=== PATIENT | female | born 1955 | race Caucasian/White ===

== ENCOUNTER 2017-01-13 14:36 | Outpatient (CLI) | payer OTHER ==
--- NOTE | 2017-01-14 10:29 | Ultrasound Report ---
PELVIC ULTRASOUND: 01/13/2017 CLINICAL INDICATION: Postmenopausal bleeding. TECHNIQUE: Transabdominal pelvic ultrasound performed for global evaluation. Transvaginal pelvic ult rasound performed for detailed evaluation. Real-time scanning performed and static images obtained. FINDINGS: The uterus is anteverted, measuring 9.9 x 5.8 x 4.4 cm. The endometrium is thickened, marcus suring 8 mm. Leiomyomas are present, with one in the right intramural myometrium measuring 2.7 x 2.2 x 2.2 cm, and one in the anterior intramural myometrium measuring 3.5 x 2.4 x 3.0 cm. The ovaries a re unremarkable, with the right measuring 2.2 x 2.1 x 1.8 cm, and the left measuring 1.8 x 1.8 x 1.1 cm. No free fluid is present. IMPRESSION: THICKENED ENDOMETRIUM FOR A POSTMENOPAUSAL PATIENT. CORRELATION WITH ENDOMETRIAL BIOPSY IS RECOMMENDED. INTRAMURAL LEIOMYOMAS. NORMAL OVARIES. JOB #: [id number] EXT JOB #:[id number]
== END 2017-01-13 14:37 | disposition home or self-care (01) ==
LOC: DI 14:36
PROVIDERS: ATTEND Family Medicine
DX: R93.8 Abnormal findings on diagnostic imaging of other specified body structures (principal); D25.1 Intramural leiomyoma of uterus
CPT/HCPCS: 76830; 76856

== ENCOUNTER 2017-03-02 09:04 | Outpatient (CLI) | payer OTHER ==
[2017-03-02 13:15] LABS: BASOPHILS % (AUTO) 0.4 %; EOSINOPHILS # (AUTO) 0.2 10^3/uL (0.0-0.7); EOSINOPHILS % (AUTO) 2.5 %; HCT - HEMATOCRIT 39.9 % (37.0-47.0); HGB - HEMOGLOBIN 13.4 g/dL (12.0-16.0); LYMPHOCYTES # (AUTO) 1.6 10^3/uL (1.5-3.5); LYMPHOCYTES % (AUTO) 25.8 %; MEAN CORPUSCULAR HEMOGLOBIN 27.9 pg (27.0-31.0); MEAN CORPUSCULAR HGB CONC 33.6 g/dL (32.0-36.0); MEAN CORPUSCULAR VOLUME 83.2 fL (81.0-99.0); MEAN PLATELET VOLUME 9.3 fL (7.9-10.8); MONOCYTES # (AUTO) 0.4 10^3/uL (0.0-1.0); MONOCYTES % (AUTO) 6.8 %; NEUTROPHILS # (AUTO) 3.9 10^3/uL (1.5-6.6); NEUTROPHILS % (AUTO) 64.5 %; NUCLEATED RED BLOOD CELLS AUTO 0.1 /100WBC; RED CELL DISTRIBUTION WIDTH 13.6 % (12.0-15.0)
[2017-03-02 13:54] LABS: ALBUMIN/GLOBULIN RATIO 1.3 (1.0-2.2); BILIRUBIN,TOTAL 0.7 mg/dL (0.2-1.0); BUN - BLOOD UREA NITROGEN 18 mg/dL (6-20); CARBON DIOXIDE - CO2 26 mmol/L (21-32); CHLORIDE 104 mmol/L (101-111); CHOL/HDL RATIO 4.8 (<4.4); CHOLESTEROL 191 mg/dL; GFR - MDRD 56 (>89); GLUCOSE 107 mg/dL (70-100); HDL CHOLESTEROL 40 mg/dL; LDL/HDL RATIO 2.9 (<4.4); POTASSIUM 4.4 mmol/L (3.5-5.0); SODIUM 137 mmol/L (135-145); TOTAL PROTEIN 7.1 g/dL (6.7-8.2); TRIGLYCERIDES 171 mg/dL; VLDL CHOLESTEROL 34 mg/dL
[2017-03-02 14:10] LABS: HEMOGLOBIN A1C 0.53 g/dL
== END 2017-03-02 09:05 | disposition home or self-care (01) ==
LOC: LAB.WCP 09:04
PROVIDERS: ATTEND Family Medicine
DX: Z00.00 Encounter for general adult medical examination without abnormal findings (principal); E03.9 Hypothyroidism, unspecified; I10 Essential (primary) hypertension
CPT/HCPCS: 36415; 80053; 80061; 83036; 84443; 85025

== ENCOUNTER 2017-03-28 12:37 | Outpatient (CLI) | payer OTHER ==
[2017-03-28 13:04] LABS: BILIRUBIN,URINE NEGATIVE (NEGATIVE); PH,URINE 5.5 PH (5.0-7.5)
[2017-03-28 13:05] LABS: BASOPHILS # (AUTO) 0.1 10^3/uL (0.0-0.1); BASOPHILS % (AUTO) 0.7 %; EOSINOPHILS # (AUTO) 0.2 10^3/uL (0.0-0.7); EOSINOPHILS % (AUTO) 2.5 %; HCT - HEMATOCRIT 39.9 % (37.0-47.0); HGB - HEMOGLOBIN 13.5 g/dL (12.0-16.0); LYMPHOCYTES # (AUTO) 2.3 10^3/uL (1.5-3.5); LYMPHOCYTES % (AUTO) 28.6 %; MEAN CORPUSCULAR HEMOGLOBIN 28.2 pg (27.0-31.0); MEAN CORPUSCULAR HGB CONC 33.9 g/dL (32.0-36.0); MEAN PLATELET VOLUME 8.4 fL (7.9-10.8); MONOCYTES # (AUTO) 0.5 10^3/uL (0.0-1.0); MONOCYTES % (AUTO) 6.7 %; NEUTROPHILS % (AUTO) 61.5 %; RED CELL DISTRIBUTION WIDTH 13.4 % (12.0-15.0); UNCORRECTED WHITE BLOOD COUNT 8.1 x10^3/uL; WHITE BLOOD COUNT 8.1 x10^3/uL (4.8-10.8)
[2017-03-28 13:19] LABS: ALBUMIN/GLOBULIN RATIO 1.4 (1.0-2.2); BILIRUBIN,TOTAL 0.7 mg/dL (0.2-1.0); CALCIUM 9.1 mg/dL (8.5-10.3); CREATININE 0.8 mg/dL (0.4-1.0); POTASSIUM 4.4 mmol/L (3.5-5.0); TOTAL PROTEIN 7.2 g/dL (6.7-8.2)
== END 2017-03-28 12:38 | disposition home or self-care (01) ==
LOC: LAB 12:37
PROVIDERS: ATTEND Obstetrics & Gynecology
DX: N95.0 Postmenopausal bleeding (principal)
CPT/HCPCS: 36415; 80053; 81003; 85025; 93005

== ENCOUNTER 2017-03-30 09:20 | Day surgery (SDC) | payer OTHER ==
--- NOTE | 2017-03-14 15:13 | PREOP HISTORY & PHYSICAL ---
DATE OF ADMISSION/SURGERY: 03/30/2017. DIAGNOSES 1. Postmenopausal bleeding. 2. Abnormal Pap smear. INTENDED PROCEDURE: Diagnostic hysteroscopy with biopsy; dilatation and curettage. HISTORY OF PRESENT ILLNESS: The patient is a 61-year-old . Her most recent vaginal bleeding episode was last Tuesday and described as similar to a period. She has had a prior endometrial biopsy, which was negative for malignancy or hyperplasia. Her Pap smear was ASCUS, and she underwent colposcopy which did not reveal dysplastic change. Due to continued bleeding, definitive diagnosis is required with hysteroscopy. Described the mechanics, risks, benefits, and alternatives to hysteroscopy. Patient had all of her questions answered. ACOG handouts on postmenopausal bleeding and hysteroscopy were reviewed. Overall, the patient has had uterine bleeding off and on for 2 years. Patient has never used contraception. She had prior abnormal Pap smears before the ASCUS. The patient reports menopausal symptoms that include loss of sex drive, memory loss, vaginal dryness, and insomnia. PAST MEDICAL HISTORY 1. She has a history of anxiety and depression with anxiety bouts and panic attacks. This interferes with her relationship with her . 2. In addition, she carries a history of fibromyalgia. 3. There is a history of hypertension, which is asymptomatic. FAMILY HISTORY: Asthma in mother; diabetes mother, father, brother; CAD mother; hypertension in mother and father. SOCIAL HISTORY: Currently in a relationship with domestic partner, previous marriage . Financial situation not worrisome. No drug, tobacco, or alcohol use reported. ALLERGIES: PATIENT IS SENSITIVE TO DEMEROL. MEDICATIONS 1. Omeprazole. 2. Synthroid. 3. Lisinopril. 4. Mobic. 5. Trazodone. 6. Fexofenadine. PHYSICAL EXAMINATION GENERAL: Well groomed, alert, cooperative, obese, suspect morbidly obese, BMI 41.6. HEENT: Supple neck. No thyromegaly or thyroid tenderness. Dentition in repair. EOMI. Non-icteric sclerae. LUNGS: Distant but clear. CARDIAC: Regular. No significant murmur or gallop. BREASTS: Pendulous. No masses detected or nipple discharge. No axillary lymphadenopathy. PELVIC EXAM: GENERAL: Mild erythematous change with atrophy. VAGINA: Mucosa is moist. Mild prolapse grade 1, rugae present. CERVIX: Parous, no lesions noted. UTERUS: Difficult to evaluate due to obesity, possibly enlarged, minimally tender. ADNEXA: Cannot determine. EXTREMITIES: Arthritis present. SKIN: No lesions. NEUROLOGIC: Grossly intact. Detailed exam and cognitive exam not done. ASSESSMENT: Patient continues to have postmenopausal bleeding despite nonpathological endometrial biopsy. Her endometrial biopsy shows a breakdown consistent with shedding; no endometritis, hyperplasia, or malignancy. Requires tissue diagnosis since the bleeding has continued. PLAN: Consented patient for hysteroscopy with D and C. Mechanics, risks, benefits, and alternatives were reviewed. Patient to have a 7 day Mobic holiday to minimize bleeding risk. OG brochure on PMB and Hysteroscopy reviewed. JOB #: [id number] EXT JOB #:[id number] ADRYAN
[2017-03-30] MEDS ORDERED: LACTATED RINGERS 1,000 ML IV ONE (09:55)
[2017-03-30] MEDS ORDERED: MIDAZOLAM 2 MG/2 ML VIAL IVP ONE (11:00)
[2017-03-30] MEDS ORDERED: LIDOCAINE-MPF 2% 5 ML VIAL IM ONE (11:00)
[2017-03-30] MEDS ORDERED: DEXAMETHASONE 4 MG/ML VIAL IVP ONE (11:00)
[2017-03-30] MEDS ORDERED: ONDANSETRON 4 MG/2 ML VIAL IVP ONE (11:00)
[2017-03-30] MEDS ORDERED: PROPOFOL 200 MG/20 ML VIAL IVP ONE (11:00)
[2017-03-30] MEDS ORDERED: fentaNYL 100 MCG/2 ML VIAL IVP ONE (11:00)
[2017-03-30] MEDS ORDERED: KETOROLAC 30 MG/ML VIAL ONE (12:27)
[2017-03-30 13:25] VITALS: BP 108/57
--- NOTE | 2017-03-31 13:02 | OPERATIVE REPORT ---
DATE OF SURGERY: 03/30/2017 PREOPERATIVE DIAGNOSES 1. Menorrhagia. 2. Normal endometrial biopsy. 3. Postmenopausal bleeding. POSTOPERATIVE DIAGNOSIS: Uterine polyps with benign appearance, await pathology. PROCEDURE: Hysteroscopy, dilatation and curettage, polypectomy. SURGEON: Phu Greer MD, FACOG, FICS. ANESTHESIOLOGIST: Olivia Dean, certified nurse inner layer scrubber tender. ANESTHESIA: General, ET tube placed. COMPLICATIONS: None. BLOOD LOSS: Minimal. FINDINGS: Uterus is prominent, probably 6 weeks size, with no adnexal masses. The uterine cavity is studded with several benign-appearing polyps. There were no areas of dysplastic vascular change. TECHNIQUE: The patient was brought to the operating room, placed in supine position for administration of general anesthesia. She was uneventfully induced and intubated. She was moved to the low dorsal lithotomy position on [facility] stirrups. She was prepped and draped in the customary sterile fashion. Timeout procedure was done per protocol. Clamshell speculum was used to visualize the cervix. Anterior cervix was grasped with a single-tooth tenaculum. Serial application of Hegar probes was used to dilate the cervix. Endocervical curetting was taken. Next, video hysteroscope was introduced into the uterine cavity and it was flushed several times for clear visualization. The polyps were clearly seen and photographed. The hysteroscope was then withdrawn. A medium sized curet was brought to the field and the cavity systematically scraped. Again, hysteroscope was inserted, and the cavity flushed. There was some residual polyp material. A medium curet was then reintroduced and the remaining material harvested. At the end of the case, the uterine cavity was packed with some iodoform gauze. All instruments were withdrawn. Patient was uneventfully awoken from general anesthesia and sent to the recovery room in stable condition. All sponge, needle and instrument counts were confirmed as correct. DISPOSITION: Vaginal packing was withdrawn prior to discharge home. Toradol was used for pain control. The patient will restart her Mobic once she is discharged to help contain uterine pain. Warning sign and callback instructions were reviewed. Patient will see us in 2 weeks to review pathology. TD: 03/30/2017 21:36 [facility]
== END 2017-03-30 09:21 | disposition home or self-care (01) ==
LOC: SDS 09:20
PROVIDERS: ATTEND Obstetrics & Gynecology
PROC: 0UDB8ZX Extraction of Endometrium, Via Natural or Artificial Opening Endoscopic, Diagnostic (ICD-10-PCS; 2017-03-30)
PROC: 0UB97ZX Excision of Uterus, Via Natural or Artificial Opening, Diagnostic (ICD-10-PCS; principal; 2017-03-30 10:30)
DX: N84.0 Polyp of corpus uteri (principal); I10 Essential (primary) hypertension; M79.7 Fibromyalgia
CPT/HCPCS: 58558; J7120

== ENCOUNTER 2017-05-04 09:30 | Outpatient (CLI) | payer OTHER ==
--- NOTE | 2017-05-10 19:48 | Mammography Report ---
DATE OF SERVICE: 05/04/2017 DIGITAL SCREENING MAMMOGRAM: 05/04/2017 CLINICAL INDICATION: A 61-year-old for screening. COMPARISON: Films from [facility], [place] dated 09/18/2015, 07/19/2013, 04/05/2011. TECHNIQUE: Routine CC and MLO projections were obtained of the breasts. The breasts demonstrate fatty replacement bilaterally. Coarse and punctate, typically benign calcifications are present. No suspicious masses, clustered microcalcifications, or regions of architectural distortion are identified. IMPRESSION: Benign findings. RECOMMENDATIONS: Routine annual screening unless otherwise clinically indicated. BIRADS category 2 benign findings. STANDARD QUALIFYING STATEMENTS 1. This examination was reviewed with the aid of Computed-Aided Detection (CAD). 2. A negative or benign imaging report should not delay biopsy if clinically suspicious findings are present. Consider surgical consultation if warranted. More than 5% of cancers are not identified by imaging. 3. Dense breasts may obscure an underlying neoplasm. TD: 05/10/2017 20:46
== END 2017-05-04 09:31 | disposition home or self-care (01) ==
LOC: DI 09:30
PROVIDERS: ATTEND Family Medicine
DX: Z12.31 Encounter for screening mammogram for malignant neoplasm of breast (principal)
CPT/HCPCS: 77067

== ENCOUNTER 2018-04-06 08:31 | Outpatient (CLI) | payer OTHER ==
[2018-04-06 13:30] LABS: BASOPHILS % (AUTO) 0.3 %; EOSINOPHILS # (AUTO) 0.2 10^3/uL (0.0-0.7); EOSINOPHILS % (AUTO) 2.8 %; HGB - HEMOGLOBIN 12.8 g/dL (12.0-16.0); LYMPHOCYTES # (AUTO) 1.4 10^3/uL (1.5-3.5); LYMPHOCYTES % (AUTO) 24.8 %; MEAN CORPUSCULAR HEMOGLOBIN 28.1 pg (27.0-31.0); MEAN CORPUSCULAR HGB CONC 33.8 g/dL (32.0-36.0); MEAN CORPUSCULAR VOLUME 83.3 fL (81.0-99.0); MEAN PLATELET VOLUME 8.7 fL (7.9-10.8); MONOCYTES # (AUTO) 0.4 10^3/uL (0.0-1.0); MONOCYTES % (AUTO) 6.3 %; NEUTROPHILS # (AUTO) 3.8 10^3/uL (1.5-6.6); NEUTROPHILS % (AUTO) 65.8 %; PLT - PLATELET COUNT 249 10^3/uL (130-450); RED BLOOD COUNT 4.55 10^6/uL (4.20-5.40); RED CELL DISTRIBUTION WIDTH 13.3 % (12.0-15.0); WHITE BLOOD COUNT 5.8 x10^3/uL (4.8-10.8)
[2018-04-06 13:59] LABS: ALBUMIN 3.8 g/dL (3.2-5.5); ALBUMIN/GLOBULIN RATIO 1.5 (1.0-2.2); ALKALINE PHOSPHATASE 68 IU/L (42-121); ALT ALANINE AMINOTRANSFERASE 31 IU/L (10-60); AST ASPARTATE AMINOTRANSFERASE 27 IU/L (10-42); BILIRUBIN,TOTAL 0.4 mg/dL (0.2-1.0); BUN - BLOOD UREA NITROGEN 16 mg/dL (6-20); CALCIUM 8.6 mg/dL (8.5-10.3); CARBON DIOXIDE - CO2 26 mmol/L (21-32); CHLORIDE 104 mmol/L (101-111); CHOL/HDL RATIO 4.6 (<4.4); CHOLESTEROL 171 mg/dL; CREATININE 0.8 mg/dL (0.4-1.0); GFR - MDRD 73 (>89); GLUCOSE 107 mg/dL (70-100); HDL CHOLESTEROL 37 mg/dL; LDL CHOLESTEROL,CALCULATED 99 mg/dL; LDL/HDL RATIO 2.7 (<4.4); SODIUM 138 mmol/L (135-145); TOTAL PROTEIN 6.4 g/dL (6.7-8.2); VLDL CHOLESTEROL 35 mg/dL
== END 2018-04-06 23:59 | disposition home or self-care (01) ==
LOC: LAB.WCP 08:31
PROVIDERS: ATTEND Family Medicine
DX: I10 Essential (primary) hypertension (principal); Z13.220 Encounter for screening for lipoid disorders; E03.9 Hypothyroidism, unspecified
CPT/HCPCS: 36415; 80053; 80061; 83721; 84443; 85025

== ENCOUNTER 2019-03-22 09:41 | Outpatient (CLI) | payer OTHER ==
--- NOTE | 2019-03-26 11:26 | Mammography Report ---
Reason: ROUTINE MAMMO Procedure Date: 03/22/2019 Accession Number: [id number] / [id number] Procedure: MARY - Screening Mammo w/Jerel CPT Code: Final Report FULL RESULT: EXAM: Screening Mammo w/Jerel DATE: 03/22/2019 10:28 AM CLINICAL HISTORY: Screening encounter. TECHNIQUE: (B) - Bilateral CC and MLO views were obtained. COMPARISON: 05/04/2017 through 04/05/2011. PARENCHYMAL PATTERN: (F) - The breast(s) demonstrate(s) diffuse fatty replacement. FINDINGS: There are no suspicious masses, calcifications, or areas of distortion. IMPRESSION: Negative examination. BI-RADS category 1. RECOMMENDATION: (ANNUAL) - Recommend routine annual screening mammography. BI-RADS CATEGORY: (1) - Negative. STANDARD QUALIFYING STATEMENTS: 1. This examination was not reviewed with the aid of Computer-Aided Detection (CAD). 2. A negative or benign imaging report should not preclude biopsy if clinically suspicious findings are present. 3. Dense breasts may obscure an underlying neoplasm. 4. This examination was reviewed without the aid of 3D breast imaging (tomosynthesis).
== END 2019-03-22 09:42 | disposition home or self-care (01) ==
LOC: DI 09:41
DX: Z12.31 Encounter for screening mammogram for malignant neoplasm of breast (principal)
CPT/HCPCS: 77063; 77067

== ENCOUNTER 2019-04-17 07:00 | Outpatient (CLI) | payer OTHER ==
[2019-04-17 11:45] LABS: BASOPHILS % (AUTO) 0.6 %; EOSINOPHILS # (AUTO) 0.2 10^3/uL (0.0-0.7); HGB - HEMOGLOBIN 13.2 g/dL (12.0-16.0); LYMPHOCYTES # (AUTO) 1.6 10^3/uL (1.5-3.5); LYMPHOCYTES % (AUTO) 29.7 %; MEAN CORPUSCULAR HEMOGLOBIN 27.4 pg (27.0-31.0); MEAN CORPUSCULAR HGB CONC 31.9 g/dL (32.0-36.0); MEAN CORPUSCULAR VOLUME 86.1 fL (81.0-99.0); MEAN PLATELET VOLUME 11.1 fL (7.9-10.8); MONOCYTES # (AUTO) 0.4 10^3/uL (0.0-1.0); MONOCYTES % (AUTO) 7.6 %; NEUTROPHILS # (AUTO) 3.1 10^3/uL (1.5-6.6); NEUTROPHILS % (AUTO) 58.7 %; PLT - PLATELET COUNT 239 10^3/uL (130-450); RED BLOOD COUNT 4.81 10^6/uL (4.20-5.40); RED CELL DISTRIBUTION WIDTH 12.7 % (12.0-15.0); WHITE BLOOD COUNT 5.3 x10^3/uL (4.8-10.8)
[2019-04-17 12:05] LABS: ALBUMIN 4.1 g/dL (3.2-5.5); ALBUMIN/GLOBULIN RATIO 1.8 (1.0-2.2); ALKALINE PHOSPHATASE 55 IU/L (42-121); ALT ALANINE AMINOTRANSFERASE 31 IU/L (10-60); AST ASPARTATE AMINOTRANSFERASE 28 IU/L (10-42); BUN - BLOOD UREA NITROGEN 15 mg/dL (6-20); CALCIUM 8.8 mg/dL (8.5-10.3); CARBON DIOXIDE - CO2 25 mmol/L (21-32); CHLORIDE 106 mmol/L (101-111); CHOL/HDL RATIO 4.5 (<4.4); CHOLESTEROL 193 mg/dL; CREATININE 0.9 mg/dL (0.4-1.0); GFR - MDRD 63 (>89); GLUCOSE 113 mg/dL (70-100); HDL CHOLESTEROL 43 mg/dL; LDL CHOLESTEROL,CALCULATED 101 mg/dL; LDL/HDL RATIO 2.3 (<4.4); SODIUM 138 mmol/L (135-145); TOTAL PROTEIN 6.4 g/dL (6.7-8.2); VLDL CHOLESTEROL 49 mg/dL
== END 2019-04-17 23:59 | disposition home or self-care (01) ==
LOC: LAB.WCP 07:00
PROVIDERS: ATTEND Family Medicine
DX: I10 Essential (primary) hypertension (principal); E03.9 Hypothyroidism, unspecified
CPT/HCPCS: 36415; 80053; 80061; 83721; 84443; 85025

== ENCOUNTER 2020-04-04 08:00 | Outpatient (CLI) | payer OTHER ==
[2020-04-04 12:17] LABS: BASOPHILS % (AUTO) 0.6 %; EOSINOPHILS # (AUTO) 0.2 10^3/uL (0.0-0.7); EOSINOPHILS % (AUTO) 3.2 %; HGB - HEMOGLOBIN 13.7 g/dL (12.0-16.0); LYMPHOCYTES # (AUTO) 1.5 10^3/uL (1.5-3.5); LYMPHOCYTES % (AUTO) 28.3 %; MEAN CORPUSCULAR HEMOGLOBIN 27.6 pg (27.0-31.0); MEAN CORPUSCULAR HGB CONC 31.7 g/dL (32.0-36.0); MEAN CORPUSCULAR VOLUME 86.9 fL (81.0-99.0); MEAN PLATELET VOLUME 11.3 fL (7.9-10.8); MONOCYTES # (AUTO) 0.4 10^3/uL (0.0-1.0); MONOCYTES % (AUTO) 7.3 %; NEUTROPHILS # (AUTO) 3.2 10^3/uL (1.5-6.6); NEUTROPHILS % (AUTO) 60.4 %; PLT - PLATELET COUNT 241 10^3/uL (130-450); RED BLOOD COUNT 4.97 10^6/uL (4.20-5.40); RED CELL DISTRIBUTION WIDTH 12.3 % (12.0-15.0); WHITE BLOOD COUNT 5.3 x10^3/uL (4.8-10.8)
[2020-04-04 13:07] LABS: ALBUMIN 4.1 g/dL (3.2-5.5); ALBUMIN/GLOBULIN RATIO 1.4 (1.0-2.2); ALKALINE PHOSPHATASE 62 IU/L (42-121); ALT ALANINE AMINOTRANSFERASE 19 IU/L (10-60); AST ASPARTATE AMINOTRANSFERASE 20 IU/L (10-42); BILIRUBIN,TOTAL 1.1 mg/dL (0.2-1.0); BUN - BLOOD UREA NITROGEN 18 mg/dL (6-20); CALCIUM 9.4 mg/dL (8.5-10.3); CARBON DIOXIDE - CO2 27 mmol/L (21-32); CHLORIDE 104 mmol/L (101-111); CHOL/HDL RATIO 4.4 (<4.4); CHOLESTEROL 199 mg/dL; CREATININE 0.8 mg/dL (0.4-1.0); GLUCOSE 106 mg/dL (70-100); HDL CHOLESTEROL 45 mg/dL; LDL CHOLESTEROL,CALCULATED 131 mg/dL; LDL/HDL RATIO 2.9 (<4.4); SODIUM 139 mmol/L (135-145); TOTAL PROTEIN 7.1 g/dL (6.7-8.2); VLDL CHOLESTEROL 23 mg/dL
[2020-04-04 13:28] LABS: HEMOGLOBIN A1c% 5.3 % (4.27-6.07)
== END 2020-04-04 23:59 | disposition home or self-care (01) ==
LOC: LAB.WCP 08:00
PROVIDERS: ATTEND Family Medicine
DX: E88.81 Metabolic syndrome and other insulin resistance (principal)
CPT/HCPCS: 36415; 80053; 80061; 83036; 83721; 84443; 85025

== ENCOUNTER 2020-05-09 12:51 | Outpatient (CLI) | payer OTHER ==
--- NOTE | 2020-05-09 15:45 | DEXA Report ---
PROCEDURE: Dexa Spine and/or Hip INDICATIONS: POSTMENOPAUSAL TECHNIQUE: Dual energy x-ray absorptiometry (DXA) was performed on a Subblime System. Regions measur ed are the AP Spine, femoral neck, and if needed forearm. COMPARISON: None. FINDINGS: Lumbar Spine: Bone Mineral Density 1.2 g/cm/cm,T score 0.2, normal Left Hip: Bone Mineral Density 0.955 g/cm/cm,T score -0.4, normal Left Femoral Neck: Bone Mineral Density 0.981 g/cm/cm, T score -0.4, normal (T score greater or equal to -1.0: NORMAL) (T score from -1.1 to -2.4: OSTEOPENIA) (T score less than or equal to -2.5 to: OSTEOPOROSIS) Impression: Normal bone mineral density. Patients with diagnosis of osteoporosis or osteopenia should have regular bone mineral density assess ment. For those eligible for Medicare, routine testing is allowed once every 2 years. Testing frequ ency can be increased for patients who have rapidly progressing disease or for those who are receivin g medical therapy to restore bone mass. Reviewed by: Kristen Fam MD on 05/09/2020 3:44 PM PST Approved by: Kristen Fam MD on 05/09/2020 3:44 PM PST Station ID: [id number]
== END 2020-05-09 12:52 | disposition home or self-care (01) ==
LOC: DI 12:51
PROVIDERS: ATTEND Family Medicine
DX: Z78.0 Asymptomatic menopausal state (principal)

== ENCOUNTER 2020-05-13 12:59 | Outpatient (CLI) | payer OTHER ==
--- NOTE | 2020-05-14 10:28 | Mammography Report ---
BILATERAL DIGITAL SCREENING MAMMOGRAM 3D/2D: 05/13/2020 CLINICAL: Routine screening. Comparison is made to exams dated: 03/22/2019 mammogram, 05/04/2017 mammogram, and 09/18/2015 mammogram - [facility]. The tissue of both breasts is predominantly fatty. No significant masses, calcifications, or other findings are seen in either breast. There has been no significant interval change. IMPRESSION: NEGATIVE There is no mammographic evidence of malignancy. A 1 year screening mammogram is recommended. This exam was interpreted at Station ID: [id number]. NOTE: For mammograms, a report in lay terms will be sent to the patient. Approximately 15% of breast malignancies will not be visualized mammographically. In the management of a palpable breast mass, a negative mammogram must not discourage biopsy of a clinically suspicious lesion. Electronically Signed By: Bijan Harp M.D. aty/penrad:05/13/2020 18:30:44 ACR BI-RADS Category 1: Negative 3341F PARENCHYMAL PATTERN: (F) - The breast(s) demonstrate(s) diffuse fatty replacement. BI-RADS CATEGORY: (1) - 1 RECOMMENDATION: (ANNUAL) - Recommend routine annual screening mammography. [id number] 1 year screening LATERALITY: (B)
== END 2020-05-13 13:00 | disposition home or self-care (01) ==
LOC: DI.N 12:59
DX: Z12.31 Encounter for screening mammogram for malignant neoplasm of breast (principal)

== ENCOUNTER 2020-08-27 08:18 | Outpatient (CLI) | payer OTHER ==
--- NOTE | 2020-08-27 12:57 | XRAY Report ---
PROCEDURE: Knee 3 View RT INDICATIONS: SUPERFICIAL INJURY OF R KNEE TECHNIQUE: 3 views of the right knee(s) were acquired. COMPARISON: None. FINDINGS: Bones: No fractures or dislocations. No suspicious bony lesions. Moderate medial and patellofemora l compartment narrowing is present with particular osteophytes. No gross erosions. There is an ossifi cation noted projecting over the tibial spine. Soft tissues: No joint effusion. No suspicious soft tissue calcifications. IMPRESSION: 1. Medial and patellofemoral arthritic change. 2. Ossification overlying the tibial spine. This could represent a loose body. As clinically indicate d, further evaluation with CT or MRI is recommended. Reviewed by: Kristen Fam MD on 08/27/2020 12:55 PM PDT Approved by: Kristen Fam MD on 08/27/2020 12:55 PM PDT Station ID: [id number]
== END 2020-08-27 23:59 | disposition home or self-care (01) ==
LOC: DI.N 08:18
PROVIDERS: ATTEND Nurse Practitioner
DX: M17.11 Unilateral primary osteoarthritis, right knee (principal); R93.6 Abnormal findings on diagnostic imaging of limbs

== ENCOUNTER 2020-09-23 08:00 | Outpatient (CLI) | payer BC, MEDICARE, OTHER ==
[2020-09-23 18:11] LABS: BASOPHILS % (AUTO) 0.5 %; EOSINOPHILS # (AUTO) 0.2 10^3/uL (0.0-0.7); EOSINOPHILS % (AUTO) 3.5 %; HCT - HEMATOCRIT 42.3 % (37.0-47.0); HGB - HEMOGLOBIN 13.4 g/dL (12.0-16.0); LYMPHOCYTES # (AUTO) 1.7 10^3/uL (1.5-3.5); LYMPHOCYTES % (AUTO) 29.4 %; MEAN CORPUSCULAR HEMOGLOBIN 27.5 pg (27.0-31.0); MEAN CORPUSCULAR HGB CONC 31.7 g/dL (32.0-36.0); MEAN CORPUSCULAR VOLUME 86.7 fL (81.0-99.0); MEAN PLATELET VOLUME 11.5 fL (7.9-10.8); MONOCYTES # (AUTO) 0.4 10^3/uL (0.0-1.0); MONOCYTES % (AUTO) 7.3 %; NEUTROPHILS # (AUTO) 3.4 10^3/uL (1.5-6.6); NEUTROPHILS % (AUTO) 59.1 %; PLT - PLATELET COUNT 230 10^3/uL (130-450); RED BLOOD COUNT 4.88 10^6/uL (4.20-5.40); RED CELL DISTRIBUTION WIDTH 12.7 % (12.0-15.0); WHITE BLOOD COUNT 5.8 x10^3/uL (4.8-10.8)
[2020-09-23 18:26] LABS: ALBUMIN 4.1 g/dL (3.2-5.5); ALBUMIN/GLOBULIN RATIO 1.5 (1.0-2.2); ALKALINE PHOSPHATASE 56 IU/L (42-121); ALT ALANINE AMINOTRANSFERASE 17 IU/L (10-60); AST ASPARTATE AMINOTRANSFERASE 14 IU/L (10-42); BUN - BLOOD UREA NITROGEN 16 mg/dL (6-20); CALCIUM 9.2 mg/dL (8.5-10.3); CARBON DIOXIDE - CO2 26 mmol/L (21-32); CHLORIDE 105 mmol/L (101-111); CHOL/HDL RATIO 3.7 (<4.4); CHOLESTEROL 177 mg/dL; CREATININE 0.7 mg/dL (0.4-1.0); GFR - MDRD 84 (>89); GLUCOSE 101 mg/dL (70-100); HDL CHOLESTEROL 48 mg/dL; LDL CHOLESTEROL,CALCULATED 105 mg/dL; LDL/HDL RATIO 2.2 (<4.4); POTASSIUM 4.3 mmol/L (3.5-5.0); SODIUM 140 mmol/L (135-145); TOTAL PROTEIN 6.9 g/dL (6.7-8.2); TRIGLYCERIDES 118 mg/dL; VLDL CHOLESTEROL 24 mg/dL
[2020-09-23 20:37] LABS: ESTIMATED AVERAGE GLUCOSE 108 mg/dL (70-100); HEMOGLOBIN A1c% 5.4 % (4.27-6.07)
== END 2020-09-23 23:59 | disposition home or self-care (01) ==
LOC: LAB.WCP 08:00
PROVIDERS: ATTEND Family Medicine
DX: I10 Essential (primary) hypertension (principal); E88.81 Metabolic syndrome and other insulin resistance
CPT/HCPCS: 36415; 80053; 80061; 83036; 83721; 85025

== ENCOUNTER 2020-10-31 06:14 | Day surgery (SDC) | payer MEDICARE, OTHER ==
[2020-10-31] MEDS ORDERED: ceFAZolin 2 GM/50 ML 2 GM/50 ML BAG IV ONE (06:21)
[2020-10-31] MEDS ORDERED: ACETAMINOPHEN 1,000 MG/100 ML 100 ML IV ONE (06:21)
[2020-10-31] MEDS ORDERED: GABAPENTIN 400 MG CAPSULE ONE (06:23)
[2020-10-31] MEDS ORDERED: DEXAMETHASONE 10 MG/ML VIAL ONE ×2 (06:24→06:51)
[2020-10-31] MEDS ORDERED: CELECOXIB 100 MG CAPSULE PO ONE (06:24)
[2020-10-31] MEDS ORDERED: LACTATED RINGERS 1,000 ML IV ONE ×2 (06:25→10:54)
[2020-10-31] MEDS ORDERED: PROPOFOL 1000 MG/100 ML 1,000 MG/100 ML BOTTLE IV ONE (06:50)
[2020-10-31] MEDS ORDERED: MIDAZOLAM 2 MG/2 ML VIAL ONE (06:50)
[2020-10-31] MEDS ORDERED: ROPIVACAINE 0.5% PF 20 ML AMPULE ONE (06:51)
[2020-10-31] MEDS ORDERED: SODIUM CHLORIDE 0.9% 10 ML VIAL IVP ONE (06:52)
[2020-10-31] MEDS ORDERED: VANCOMYCIN 1 GM VIAL ONE (07:02)
--- NOTE | 2020-10-31 07:12 | ANESTHESIA ---
Pre-Anesthesia VS, & Labs - Diagnosis right knee osteoarthritis - Procedure right knee total athroplasty Vital Signs: Temp Pulse Resp BP Pulse Ox 36.2 C L 63 16 139/68 H 99 10/31/20 06:28 10/31/20 06:28 10/31/20 06:28 10/31/20 06:28 10/31/20 06:28 Height: 5 ft 2 in Weight (kg): 95 kg Body Mass Index: 38.2 BMI Classification: Obese - NPO >8 hours Last Fluid Intake: clear liquid 0400 - Is Patient ?: No Home Medications and Allergies Home Medications: Ambulatory Orders Losartan Potassium [Cozaar] 100 mg PO DAILY 10/23/20 Albuterol Sulfate [Proair Hfa Inhaler] 2 puffs INH Q4H PRN 03/28/17 Calcium Carbonate/Vitamin D3 [Calcium 600 + Vit D 400 Tablet] 1 each PO DAILY 03/28/17 Clobetasol 0.05% Oint [Temovate 0.05% Oint] 1 applic TOP BID PRN 03/28/17 Fluoxetine HCl 40 mg PO DAILY 03/28/17 Levothyroxine [Synthroid] 25 mcg PO QDAC 03/28/17 Meloxicam 15 mg PO DAILY 03/28/17 Omeprazole [PriLOSEC] 20 mg PO DAILY 03/28/17 Trazodone HCl 50 mg PO DAILY PRN 03/28/17 Losartan Potassium [Cozaar] 100 mg PO DAILY 10/23/20 Allergies/Adverse Reactions: Allergies Allergy/AdvReac Type Severity Reaction Status Date / Time meperidine [From Demerol] Allergy feels like Verified 10/23/20 13:08 quit breathing lisinopril AdvReac cough Verified 10/23/20 13:08 Anes History & Medical History - Anesthetic History Anesthesia Complications: reports: No previous complications - Medical History Cardiovascular: reports: Hypertension Pulmonary: reports: Asthma Gastrointestinal: reports: GERD, Cholelithiasis Urinary: reports: None Neuro: reports: None Musculoskeletal: reports: Osteoarthritis, Fibromyalgia, Chronic back pain Endocrine/Autoimmune: reports: HyPOthyroidism Blood Disorders: reports: None Skin: reports: None Smoking Status: Never smoker Psychosocial: reports: Depression, Anxiety History of Cancer?: No - Surgical History General: reports: Cholecystectomy, Colonoscopy Gynecologic: reports: Dilation and currettage Dermatologic: reports: Other Exam General: Alert, Oriented x3, Cooperative, No acute distress Dental: Poor dentition Mouth Openin Fingerbreadth Neck Mobility: Normal Mallampati classification: III Thyromental Distance: less than 4 cm Mental/Cognitive Status: Alert/Oriented X3, Normal for patient Plan Anesthesia Type: Spinal, Adductor Block (right) Regional Block: Per Surgeon's request for Post Op pain control Consent for Procedure(s) Verified and Reviewed: Yes Code Status: Attempt Resuscitation ASA classification: 2-Mild systemic disease Is this case an emergency?: No
[2020-10-31] MEDS ORDERED: TRANEXAMIC ACID 1,000 MG/10 ML VIAL ONE ×2 (07:41→09:12)
[2020-10-31] MEDS ORDERED: ePHEDrine 50 MG/ML VIAL IVP ONE (07:53)
[2020-10-31] MEDS ORDERED: BUPIVACAINE 0.25% PF 30 ML VIAL SUBQ ONE ×3 (08:16→09:38)
[2020-10-31] MEDS ORDERED: VANCOMYCIN 1 GM VIAL MC ONE ×2 (08:17→10:01)
[2020-10-31] MEDS ORDERED: BUPIVACAINE 0.25% PF 30 ML VIAL ONE (08:18)
[2020-10-31] MEDS ORDERED: PROPOFOL 200 MG/20 ML VIAL IVP ONE (10:19)
[2020-10-31] MEDS ORDERED: HYDROmorphone 0.5 MG/0.5 ML SYRINGE IVP PRN (10:23)
[2020-10-31] MEDS ORDERED: ONDANSETRON 4 MG/2 ML VIAL IVP PRN ×2 (10:23→11:13)
[2020-10-31] MEDS ORDERED: fentaNYL 100 MCG/2 ML VIAL IVP PRN (10:23)
[2020-10-31] MEDS ORDERED: NALOXONE 0.4 MG/ML VIAL IVP PRN (10:23)
[2020-10-31] MEDS ORDERED: ATROPINE ABBOJECT 1 MG/10 ML SYRINGE IVP PRN (10:23)
[2020-10-31] MEDS ORDERED: MORPHINE 2 MG/ML CARPUJECT IVP PRN (10:23)
[2020-10-31] MEDS ORDERED: ePHEDrine 50 MG/ML VIAL IVP PRN (10:23)
[2020-10-31] MEDS ORDERED: LACTATED RINGERS 1,000 ML IV SCH (11:00)
--- NOTE | 2020-10-31 11:00 | OPERATIVE REPORT ---
Operative Report - General Procedure Date: 10/31/20 Planned Procedure: right total knee arthroplasty Pre-Op Diagnosis: Varus osteoarthritis right knee Procedure Performed: Right total knee arthroplastyUsing Horton & Nephew journey 2 cruciate retaining total knee system: #5 femoral component, #3 tibial baseplate, 18 mm deep dish articular insert, 26 mm biconvex polyethylene patellar component; all components secured with cement Post Op Diagnosis: Same as preoperative diagnosis - Procedure Note Primary Surgeon: Rosalio Dyer MD Anesthesia Provider: Sylvain Horton CRNA Anesthesia Technique: Regional block, Spinal Estimated Blood Loss (mL): 200 Indications: This is a 65-year-old woman with chronic and debilitating pain to her right knee not responsive to the usual nonoperative measures. She did have joint line tenderness and symmetrical laxity to both knees. Her x-rays showed [id number] or near cfby-sy-[id number] contact of the medial compartment with relative sparing of the lateral compartment, tibial femoral and some patellofemoral osteophytes. Findings: She had partial wear to the lateral compartment articular surface, complete loss of articular cartilage to the entire tibial condyle and nearly complete loss of all articular cartilage to the medial femoral condyle. The patella showed full- thickness loss in the trochlea, partial thickness loss of articular cartilage to the patella, osteophytes about the tibiofemoral joint especially femur, notch and patellar areas.She did seem to have increased tissue laxity with relatively conservative bone cuts. The medial collateral ligament was completely intact but she required a thicker than average tibial bearing to make her knee stable in extension and flexion. Complications: None - Other Other Information/Narrative: The patient was brought to the operating room and was placed in a supine position. She was given a adductor canal block by anesthesia. A pneumatic tourniquet was applied to the proximal right thigh over cast padding. This was a conical shaped Neida thigh tourniquet that was sterile. An Bowman knee positioner was placed on the operating room table to facilitate knee flexion of the right knee during surgery. A timeout procedure was performed by the entire operating room team and all were in agreement. A midline longitudinal incision was made with the knee in flexion. A medial parapatellar arthrotomy was made. The anterior horn of medial and lateral menisci were released and part of patellar fat pad was excised. The knee was flexed and the patella was dislocated laterally. A drill hole was made in the intramedullary notch with a 9.5 mm drill. Osteophytes about the proximal tibia and femur had been removed with a rongure. The distal femoral cutting guide was aligned parallel to the posterior condyles. The intramedullary heather and guide was advanced and the distal femoral guide was stabilized with half pins. The distal 5 degrees valgus cut was made through the distal femoral guide. Next the extra medullary tibial guide was assembled and applied and aligned to the mechanical axis in both sagittal and coronal planes. Tibial referencing was done to allow 3 mm of bone from the most affected side and 10 mm from the least affected side. The tibial guide was stabilized with half pins. Retractors were placed medially and laterally to protect the collateral ligaments and a retractor was placed directly against the posterior bone to sublux the tibia anteriorly. A mymission2 saw was used to make the tibial proximal cut. The tibial block was removed as a single piece and the menisci were removed as well. The extension gap was assessed with a extension block spacer using a 12mm spacer and this was found to fit well as well as the 12 mm spacer block with the knee in 90 degrees of flexion. Next the femoral positioning guide was applied and aligned to the epicondylar axis and [place] line. This was secured in place with approximately 3 degrees of external rotation. The size of the femur at the anterior lateral trochlea was a #5. Drill holes were made in the 5 and 1 #6 cutting block was inserted and secured. The block was shifted 1mm posterior to decrease the flexion space. The 5 cuts were made to the captured block using precision saw. The flexion gap was assessed with the 12 mm spacer and was found to fit well. The patella was then prepared. A biconvex patellar reamer was used. The tibial trial #3 was then applied to the tibia and aligned to the mechanical axis. The punch fin was utilized. Trial reduction was performed with the femoral and tibial components in place. Notch resection was then through the trial component with reamer and box osteotome. Pulsatile lavage was performed. A tourniquet was applied during the cementing process. The components were inserted sequentially: Tibia, femur and lastly patellar component. Excess cement was removed and the knee was placed in extension during the hardening. Dilute Betadine irrigation was performed. The knee had full range of motion, good patellar tracking. There was good stability of the knee in full extension, mid flexion and 90 degrees of flexion with the tibial bearing upsized to 18mm, deep dish. There was good alignment of the right knee. The tourniquet had been deflated and had been in place for 18 minutes. Hemostasis was achieved with electrocautery. The deep closure was performed with #1 Ethibond proximal and distal to the patella with the knee in 30 degrees of flexion. #1 Stratofix suture was then used to close the arthrotomy incision. 2-0 stratofix was used to close the subcutaneous tissue. 3-0 Monocryl was used to do a subcuticular skin closure. Dermabond was applied to the skin incision. After the Dermabond had hardened, a silver impregnated dressing was applied. The patient tolerated the procedure well and received 2 g of Ancef intravenously and 2 g of tranexamic acid.
[2020-10-31] MEDS ORDERED: SODIUM CHLORIDE FLUSH 0.9% 10 ML SYRINGE IVP PRN (11:13)
[2020-10-31] MEDS ORDERED: diphenhydrAMINE 25 MG CAPSULE PO PRN (11:15)
[2020-10-31] MEDS ORDERED: HYDROmorphone 1 MG/ML CARPUJECT IVP PRN (11:15)
[2020-10-31] MEDS ORDERED: BISACODYL 10 MG SUPP PR PRN (11:15)
[2020-10-31] MEDS ORDERED: ZOLPIDEM 5 MG TABLET PO PRN (11:15)
[2020-10-31] MEDS ORDERED: DOCUSATE SODIUM 100 MG CAPSULE PO PRN (11:15)
--- NOTE | 2020-10-31 11:35 | ANESTHESIA POST OP EVALUATION ---
Anesthesia Post Eval - Post Anesthesia Eval Vitals: Last Vital Signs Temp 36.4 C L 10/31/20 11:15 Pulse 80 10/31/20 11:15 Resp 20 10/31/20 11:15 BP 134/80 H 10/31/20 11:15 Pulse Ox 95 10/31/20 11:15 CV Function Including HR & BP: Stable Pain Control: Satisfactory Nausea & Vomiting: Negative Mental Status: Baseline Respiratory Status: Airway Patent Hydration Status: Satisfactory Anesthesia Complications: None
[2020-10-31] MEDS ORDERED: CLOBETASOL 0.05% OINT 15 GM TUBE TOP PRN (11:59)
[2020-10-31] MEDS: ACETAMINOPHEN 500 MG TABLET PO SCH ×2 (11:59→18:30)
[2020-10-31] MEDS ORDERED: NS W/20 MEQ KCL 1,000 ML IV SCH (12:00)
[2020-10-31] MEDS: traMADol 50 MG TABLET PO PRN (12:17)
[2020-10-31 12:25] LABS: CALCIUM 8.7 mg/dL (8.5-10.3); CREATININE 0.8 mg/dL (0.4-1.0); POTASSIUM 4.3 mmol/L (3.5-5.0)
--- NOTE | 2020-10-31 12:25 | XRAY Report ---
PROCEDURE: Knee 2 View RT INDICATIONS: right total knee replacement, post-op TECHNIQUE: 2 views of the right knee(s) were acquired. COMPARISON: X-ray right knee, 3 views, 08/27/2020. FINDINGS: Bones: There is right knee total arthroplasty with prosthesis in anatomic alignment. No suspicious b renetta lesions. Soft tissues: Postsurgical changes noted. IMPRESSION: Right knee total arthroplasty with prosthesis in anatomic alignment. Reviewed by: Dayana Cobian MD on 10/31/2020 12:24 PM PDT Approved by: Dayana Cobian MD on 10/31/2020 12:24 PM PDT Station ID: [id number]
[2020-10-31] MEDS ORDERED: traZODone 50 MG TABLET PO PRN (12:32)
[2020-10-31 12:35] LABS: BASOPHILS % (AUTO) 0.2 %; EOSINOPHILS % (AUTO) 0.2 %; HCT - HEMATOCRIT 39.5 % (37.0-47.0); HGB - HEMOGLOBIN 12.7 g/dL (12.0-16.0); LYMPHOCYTES # (AUTO) 0.8 10^3/uL (1.5-3.5); LYMPHOCYTES % (AUTO) 6.9 %; MEAN CORPUSCULAR HEMOGLOBIN 27.6 pg (27.0-31.0); MEAN CORPUSCULAR HGB CONC 32.2 g/dL (32.0-36.0); MEAN CORPUSCULAR VOLUME 85.9 fL (81.0-99.0); MEAN PLATELET VOLUME 10.7 fL (7.9-10.8); MONOCYTES # (AUTO) 0.1 10^3/uL (0.0-1.0); MONOCYTES % (AUTO) 1.2 %; NEUTROPHILS # (AUTO) 10.2 10^3/uL (1.5-6.6); NEUTROPHILS % (AUTO) 90.9 %; PLT - PLATELET COUNT 227 10^3/uL (130-450); RED CELL DISTRIBUTION WIDTH 12.8 % (12.0-15.0); WHITE BLOOD COUNT 11.2 x10^3/uL (4.8-10.8)
[2020-10-31] MEDS ORDERED: ALBUTEROL NEB 2.5 MG/3 ML INH PRN (12:36)
--- NOTE | 2020-10-31 12:39 | CONSULTATION NOTE ---
Referring Provider Name of Referring Provider:: Dr Dyer Consult Date: 10/31/20 Chief Complaint - Chief Complaint Chief Complaint: right knee pain History of Present Illness - Admitted From Admitted From:: medical floor - History Obtained From Records Reviewed: [facility] History obtained from: pt Exam Limitations: no - History of Present Illness HPI Comment/Other: This is a 65 years old female with a past medical history significant noted for hypertension, asthma, hypothyroidism, GERD, history of urinary retention, depression/anxiety, osteoarthritis, chronic back pain, fibromyalgia, who just had right total knee arthroplasty done by our orthopedic surgeon. Medical team was consulted for medical management for this patient in the hospital.Patient report mild pain on her right knee when she tried to move, Otherwise she has no any other complaints. Nurse report patient has no urination, nurse put a straight catheter for pt. patient had over 1000 cc urine. Patient reported she had a similar problem, urinary retention, after she had gallbladder removal. After the patient was discharged from that procedure, patient has been normal urination. Patient denies dysuria, hematuria. History - Past Medical History Cardiovascular: reports: Hypertension Respiratory: reports: Asthma Neuro: reports: None Endocrine/Autoimmune: reports: HyPOthyroidism GI: reports: GERD, Cholelithiasis : reports: None HEENT: reports: Chronic vision loss, Chronic sinusitis Psych: reports: Depression, Anxiety Musculoskeletal: reports: Osteoarthritis, Fibromyalgia, Chronic back pain Derm: reports: None MRSA Hx?: No - Past Surgical History General: reports: Cholecystectomy, Colonoscopy /[employer] MANAGER: reports: Dilation and currettage Derm: reports: Other Meds/Allgy - Home Medications Home Medications: Ambulatory Orders Medication Instructions Recorded Confirmed Albuterol Sulfate [Proair Hfa 2 puffs INH Q4H PRN 03/28/17 10/23/20 Inhaler] Calcium Carbonate/Vitamin D3 1 each PO DAILY 03/28/17 10/31/20 [Calcium 600 + Vit D 400 Tablet] Clobetasol 0.05% Oint [Temovate 1 applic TOP BID PRN 03/28/17 10/23/20 0.05% Oint] Fluoxetine HCl 40 mg PO DAILY 03/28/17 10/31/20 Levothyroxine [Synthroid] 25 mcg PO QDAC 03/28/17 10/31/20 Meloxicam 15 mg PO DAILY 03/28/17 10/31/20 Omeprazole [PriLOSEC] 20 mg PO DAILY 03/28/17 10/31/20 Trazodone HCl 50 mg PO DAILY PRN 03/28/17 10/31/20 Losartan Potassium [Cozaar] 100 mg PO DAILY 10/23/20 10/31/20 - Allergies Allergies/Adverse Reactions: Allergies Allergy/AdvReac Type Severity Reaction Status Date / Time meperidine [From Demerol] Allergy feels like Verified 10/23/20 13:08 quit breathing lisinopril AdvReac cough Verified 10/23/20 13:08 Review of Systems - Constitutional Constitutional: denies: Fever, Chills - Eyes Eyes: denies: Pain, Field loss, Vision loss - Ears, Nose & Throat Ears, Nose & Throat: denies: Ear pain - Cardiovascular Cariovascular: denies: Irregular heart rate, Palpitations, Chest pain, Lightheadedness, Syncope - Respiratory Respiratory: denies: Cough, Sputum production, SOB at rest, SOB with exertion - Gastrointestinal Gastrointestinal: denies: Abdominal pain, Diarrhea, Nausea, Vomiting - Genitourinary Genitourinary: denies: Dysuria, Hematuria, Incontinence - Musculoskeletal Musculoskeletal: reports: Joint pain. denies: Muscle pain - Integumentary Integumentary: denies: Rash - Neurological Neurological: denies: Focal weakness, Dizziness, Pre-existing deficit, Abnormal gait, Seizures, Slurred speech - Psychiatric Psychiatric: denies: Depression - Hematologic/Lymphatic Hematologic/Lymphatic: denies: Anemia Exam - Vital Signs Vital Signs: Vital Signs x48h Temp Pulse Pulse Resp BP BP Pulse Ox 10/31/20 11:41 36.3 C L 68 16 127/85 H 98 10/31/20 11:25 36.3 C L 71 16 131/81 H 97 10/31/20 11:20 36.6 C 96 14 140/73 H 96 10/31/20 11:15 36.4 C L 80 20 134/80 H 95 10/31/20 11:10 36.4 C L 86 16 96/71 96 10/31/20 11:05 36.4 C L 88 16 102/61 94 10/31/20 10:59 36.6 C 90 22 116/88 H 99 10/31/20 10:54 36.6 C 95 12 111/56 L 97 10/31/20 06:28 36.2 C L 63 16 139/68 H 99 - Physical Exam General Appearance: positive: No acute distress, Alert. negative: Lethargic Eyes Bilateral: positive: Normal inspection, PERRL, No lid inflammation ENT: positive: ENT inspection nml, No signs of dehydration. negative: Purulent nasal drainage Neck: positive: Nml inspection, Trachea midline. negative: Thyromegaly, Tracheal deviation Respiratory: positive: Chest non-tender, No respiratory distress, Breath sounds nml. negative: Wheezes, Rales Cardiovascular: positive: Regular rate & rhythm, No murmur. negative: Tachycardia, Bradycardia, Systolic murmur, Diastolic murmur Peripheral Pulses: positive: 2+ Abdomen: positive: Non-tender, Nml bowel sounds, No distention. negative: Tenderness Back: positive: Nml inspection Skin: positive: Color nml, Warm, Dry. negative: Cyanosis Extremities: positive: Non-tender. negative: Calf tenderness Neurologic/Psychiatric: positive: Oriented x3, Sensation nml, Mood/affect nml. negative: Weakness, Sensory loss, Facial droop, Slurred/abnml speech, Depressed mood/affect Conclusion/Plan - Plan Plan: 1, urinary retention Patient has history of urinary retention after surgery, likely from anesthesia effective. Today patient has no urination, Nurse had a straight catheter for patient and have 1000 cc urine out. We will continue Straight catheter as needed, Continue monitor patient. 2,right total knee arthroplasty Patient had right total knee arthroplasty. We will follow up with orthopedic surgeon, continue pain control, continue PT,OT. likely Plan discharge home tomorrow 3, HTN Patient blood pressure is stable, we will resume patient home blood pressure [place], Continue vital signs monitor 4, asthma Patient has a history of asthma, we will resume patient home medication albuterol as needed 5, chronic back pain We will continue pain control in the hospital 6, hypothyroidism We will check TSH, resume home Synthroid 7, GERD Will resume home Protonix 8, depression/anxiety stable, resume home fluoxetine, Trazodone - Lab Results Fish Bones: 10/31/20 12:10 10/31/20 12:10
[2020-10-31] MEDS: ceFAZolin 2 GM/50 ML 2 GM/50 ML BAG IV SCH ×2 (14:06→22:36)
[2020-10-31] MEDS: PANTOPRAZOLE 40 MG TABLET PO SCH (14:07)
[2020-10-31] MEDS: LOSARTAN 50 MG TABLET PO SCH (14:07)
[2020-10-31] MEDS: oxyCODONE 5 MG TABLET PO PRN ×2 (14:07→18:24)
[2020-10-31] MEDS: SODIUM CHLORIDE FLUSH 0.9% 10 ML SYRINGE IVP SCH (17:29)
[2020-10-31] MEDS: CELECOXIB 100 MG CAPSULE PO SCH (22:36)
[2020-10-31] MEDS: ASPIRIN EC 81 MG TABLET PO SCH (22:37)
[2020-10-31] MEDS: ethyl alcohoL 62% SWAB AMPULE NAS SCH (22:37)
[2020-11-01] MEDS: oxyCODONE 5 MG TABLET PO PRN (00:26)
[2020-11-01] MEDS: ACETAMINOPHEN 500 MG TABLET PO SCH ×3 (00:28→11:45)
[2020-11-01] MEDS: SODIUM CHLORIDE FLUSH 0.9% 10 ML SYRINGE IVP SCH ×2 (00:28→08:52)
[2020-11-01] MEDS: PANTOPRAZOLE 40 MG TABLET PO SCH (06:17)
[2020-11-01 06:50] LABS: BASOPHILS % (AUTO) 0.2 %; HCT - HEMATOCRIT 35.6 % (37.0-47.0); HGB - HEMOGLOBIN 11.5 g/dL (12.0-16.0); LYMPHOCYTES # (AUTO) 1.1 10^3/uL (1.5-3.5); LYMPHOCYTES % (AUTO) 8.9 %; MEAN CORPUSCULAR HEMOGLOBIN 27.4 pg (27.0-31.0); MEAN CORPUSCULAR HGB CONC 32.3 g/dL (32.0-36.0); MEAN CORPUSCULAR VOLUME 84.8 fL (81.0-99.0); MEAN PLATELET VOLUME 10.8 fL (7.9-10.8); MONOCYTES # (AUTO) 0.8 10^3/uL (0.0-1.0); MONOCYTES % (AUTO) 6.8 %; NEUTROPHILS # (AUTO) 10.1 10^3/uL (1.5-6.6); NEUTROPHILS % (AUTO) 83.6 %; PLT - PLATELET COUNT 229 10^3/uL (130-450); RED CELL DISTRIBUTION WIDTH 12.9 % (12.0-15.0); WHITE BLOOD COUNT 12.1 x10^3/uL (4.8-10.8)
[2020-11-01 07:00] LABS: CALCIUM 8.8 mg/dL (8.5-10.3); CREATININE 0.8 mg/dL (0.4-1.0); POTASSIUM 4.4 mmol/L (3.5-5.0)
[2020-11-01] MEDS ORDERED: LEVOTHYROXINE 25 MCG TABLET PO SCH (07:00)
[2020-11-01 07:49] VITALS: BP 141/68
[2020-11-01] MEDS: traMADol 50 MG TABLET PO PRN ×2 (07:53→11:45)
[2020-11-01] MEDS: LOSARTAN 50 MG TABLET PO SCH (08:51)
[2020-11-01] MEDS: CELECOXIB 100 MG CAPSULE PO SCH (08:52)
[2020-11-01] MEDS: ethyl alcohoL 62% SWAB AMPULE NAS SCH (08:52)
[2020-11-01] MEDS: ASPIRIN EC 81 MG TABLET PO SCH (08:52)
[2020-11-01] MEDS ORDERED: FLUoxetine 10 MG CAPSULE PO SCH (09:00)
[2020-11-01] MEDS ORDERED: polyethylene glycoL 3350 17 GM PACKET PO SCH (09:00)
[2020-11-01] MEDS ORDERED: CHOLECALCIFEROL 25 MCG TABLET PO SCH (09:00)
[2020-11-01] MEDS ORDERED: CALCIUM CARB (OYSTER SHELL) 500 MG TABLET PO SCH (09:00)
--- NOTE | 2020-11-01 09:09 | PROVIDER PROGRESS NOTE ---
Subjective - General Procedure Date: 10/31/20 Post Op Days: 1 Procedure Performed: Right total knee replacement - Review of Systems Wound/Incisions: positive: Dressing dry and intact General: negative: Other (Her pain is under good control, rates at a 3-4 currently. She has been up with physical therapy and seems to be doing quite well) Cardiovascular: positive: No symptoms Gastrointestinal: positive: No symptoms Genitourinary: positive: No symptoms Psychiatric: positive: No symptoms Objective - Patient Data Vital Signs: Vital Signs x48h Temp Pulse Resp BP Pulse Ox 11/01/20 07:49 36.6 C 54 L 17 141/68 H 98 11/01/20 05:00 36.4 C L 85 16 114/78 98 Weight: Weight 10/30/20 10/31/20 11/01/20 23:59 23:59 23:59 Weight (kg) 95 kg Intake & Output: Intake and Output Totals x24h 10/30/20 10/31/20 11/01/20 23:59 23:59 23:59 Intake Total 1788 240 Output Total 1200 650 Balance 588 -410 - Lab Results Lab Results: 11/01/20 06:16 11/01/20 06:16 Other Lab Results: Lab Results x24hrs 11/01/20 11/01/20 10/31/20 Range/Units 06:16 06:16 12:10 WBC 12.1 H (4.8-10.8) x10^3/uL RBC 4.20 (4.20-5.40) 10^6/uL Hgb 11.5 L (12.0-16.0) g/dL Hct 35.6 L (37.0-47.0) % MCV 84.8 (81.0-99.0) fL MCH 27.4 (27.0-31.0) pg MCHC 32.3 (32.0-36.0) g/dL RDW 12.9 (12.0-15.0) % Plt Count 229 (130-450) 10^3/uL MPV 10.8 (7.9-10.8) fL Neut # (Auto) 10.1 H (1.5-6.6) 10^3/uL Lymph # (Auto) 1.1 L (1.5-3.5) 10^3/uL [place] # (Auto) 0.8 (0.0-1.0) 10^3/uL Eos # (Auto) 0.0 (0.0-0.7) 10^3/uL Baso # (Auto) 0.0 (0.0-0.1) 10^3/uL Absolute Nucleated RBC 0.00 x10^3/uL Nucleated RBC % 0.0 /100WBC Sodium 137 (135-145) mmol/L Potassium 4.4 (3.5-5.0) mmol/L Chloride 101 (101-111) mmol/L Carbon Dioxide 26 (21-32) mmol/L Anion Gap 10.0 (6-13) BUN 15 (6-20) mg/dL Creatinine 0.8 (0.4-1.0) mg/dL Estimated GFR (MDRD) 72 L (>89) Glucose 156 H (70-100) mg/dL Calcium 8.8 (8.5-10.3) mg/dL TSH 1.25 (0.34-5.60) uIU/mL 10/31/20 10/31/20 Range/Units 12:10 12:10 WBC 11.2 H (4.8-10.8) x10^3/uL RBC 4.60 (4.20-5.40) 10^6/uL Hgb 12.7 (12.0-16.0) g/dL Hct 39.5 (37.0-47.0) % MCV 85.9 (81.0-99.0) fL MCH 27.6 (27.0-31.0) pg MCHC 32.2 (32.0-36.0) g/dL RDW 12.8 (12.0-15.0) % Plt Count 227 (130-450) 10^3/uL MPV 10.7 (7.9-10.8) fL Neut # (Auto) 10.2 H (1.5-6.6) 10^3/uL Lymph # (Auto) 0.8 L (1.5-3.5) 10^3/uL [place] # (Auto) 0.1 (0.0-1.0) 10^3/uL Eos # (Auto) 0.0 (0.0-0.7) 10^3/uL Baso # (Auto) 0.0 (0.0-0.1) 10^3/uL Absolute Nucleated RBC 0.00 x10^3/uL Nucleated RBC % 0.0 /100WBC Sodium 137 (135-145) mmol/L Potassium 4.3 (3.5-5.0) mmol/L Chloride 100 L (101-111) mmol/L Carbon Dioxide 26 (21-32) mmol/L Anion Gap 11.0 (6-13) BUN 14 (6-20) mg/dL Creatinine 0.8 (0.4-1.0) mg/dL Estimated GFR (MDRD) 72 L (>89) Glucose 138 H (70-100) mg/dL Calcium 8.7 (8.5-10.3) mg/dL TSH (0.34-5.60) uIU/mL - Current Medications Current Medications: Current Medications Generic Name Dose Route Start Last Admin Trade Name Juanitoq PRN Reason Stop Dose Admin Acetaminophen 1,000 mg 10/31/20 12:00 11/01/20 06:17 Acetaminophen 500 Mg Tablet PO 1,000 mg Q6HR DUANE Administration Alcohol 1 amp 10/31/20 21:00 11/01/20 08:52 Ethyl Alcohol 62% Swab Ampule NOA 1 amp BID DUANE Administration Aspirin 81 mg 10/31/20 21:00 11/01/20 08:52 Aspirin Ec 81 Mg Tablet PO 81 mg BID DUANE Administration Calcium Carbonate/Glycine 500 mg 11/01/20 09:00 11/01/20 08:52 Calcium Carb (Oyster Shell) 500 Mg Tablet PO 500 mg DAILY DUANE Administration Celecoxib 200 mg 10/31/20 21:00 11/01/20 08:52 Celecoxib 100 Mg Capsule PO 200 mg BID DUANE Administration Cholecalciferol 25 mcg 11/01/20 09:00 11/01/20 08:52 Cholecalciferol 25 Mcg Tablet PO 25 mcg DAILY DUANE Administration Fluoxetine HCl 40 mg 11/01/20 09:00 11/01/20 08:51 Fluoxetine 10 Mg Capsule PO 40 mg DAILY DUANE Administration Levothyroxine Sodium 25 mcg 11/01/20 07:00 11/01/20 06:17 Levothyroxine 25 Mcg Tablet PO 25 mcg QDAC DUANE Administration Losartan Potassium 100 mg 10/31/20 14:00 11/01/20 08:51 Losartan 50 Mg Tablet PO 100 mg DAILY DUANE Administration Oxycodone HCl 5 mg 10/31/20 11:15 11/01/20 00:26 Oxycodone 5 Mg Tablet PO 5 mg Q6HR PRN Administration PAIN Pantoprazole Sodium 40 mg 10/31/20 13:00 11/01/20 06:17 Pantoprazole 40 Mg Tablet PO 40 mg QDAC DUANE Administration Polyethylene Glycol 17 gm 11/01/20 09:00 11/01/20 08:51 Polyethylene Glycol 3350 17 Gm Packet PO 17 gm DAILY DUANE Administration Sodium Chloride 10 ml 10/31/20 17:00 11/01/20 08:52 Sodium Chloride Flush 0.9% 10 Ml Syringe IVP 10 ml 0100,0900,1700 DUANE Administration Tramadol HCl 50 mg 10/31/20 11:27 11/01/20 07:53 Tramadol 50 Mg Tablet PO 50 mg Q4HR PRN Administration PAIN Trazodone HCl 50 mg 10/31/20 12:32 10/31/20 22:36 Trazodone 50 Mg Tablet PO 50 mg QPM PRN Administration Insomnia - Physical Exam Wound/Incisions: positive: Dressing dry and intact Respiratory: positive: No respiratory distress Skin: negative: Color nml (Mild swelling below right knee, neurovascular intact dressing dry and intact) Neurologic/Psychiatric: positive: Oriented x3 Impression/Plan - Problem List Problem List: Status post right total knee arthroplasty She seems to have good pain control and is making good progress with physical therapy. She should be a safe discharge for home with walker, weightbearing as tolerated, ice, elevation, exercise as discussed and a recheck to your office next week. She will continue with low-dose aspirin deep venous thrombosis prophylaxis 81 mg twice daily for 6 weeks. She has her pain medications and had been prescribed prior to surgery that involved use of Tylenol, ibuprofen, tramadol and oxycodone as directed in joint camp and preoperative evaluation
--- NOTE | 2020-11-01 09:13 | Discharge Plan ---
Discharge Plan Problem Reviewed?: Yes Disposition: Home, Self Care Condition: Good Diet: Regular Activity Restrictions: Wt Bearing as Tolerated Shower Restrictions: No Driving Restrictions: Yes (no driving) Assistance Devices: Walker Weight Bearing: Partial Weight No Smoking: If you smoke, Please STOP! Call for help. Follow-up with: Kanu Keene DO [Primary Care Provider] -
== END 2020-11-01 12:30 | disposition home or self-care (01) ==
LOC: SDS 06:14 → MS2 11:25 → SDS 11-01 12:30
PROVIDERS: ATTEND Orthopaedic Surgery
DX: M17.11 Unilateral primary osteoarthritis, right knee (principal); R33.9 Retention of urine, unspecified; I10 Essential (primary) hypertension; J45.909 Unspecified asthma, uncomplicated; M54.9 Dorsalgia, unspecified; G89.29 Other chronic pain; E03.9 Hypothyroidism, unspecified; K21.9 Gastro-esophageal reflux disease without esophagitis; F32.9 Major depressive disorder, single episode, unspecified; F41.9 Anxiety disorder, unspecified; E66.9 Obesity, unspecified; Z68.38 Body mass index [BMI] 38.0-38.9, adult
CPT/HCPCS: 27447; 36415; 51701; 73560; 80048; 84443; 85025; 97110; 97116; 97162; 97535; A9270; C1713; J0131; J0690; J3370; J7120

== ENCOUNTER 2020-12-11 18:24 | Outpatient (CLI) | payer MEDICARE, OTHER ==
--- NOTE | 2020-12-12 17:17 | XRAY Report ---
PROCEDURE: Knee 4 View RT INDICATIONS: R TKA TECHNIQUE: 4 views of the bilateral knee(s) were acquired. COMPARISON: Prior right knee series dated 10/31/2020 FINDINGS: Bones: No fractures or dislocations. No suspicious bony lesions. Moderate to severe narrowing of t he left medial femoral tibial joint. Right knee arthroplasty redemonstrated with prosthetic component s in expected positions. No periprosthetic fracture or evidence of loosening/infection. Soft tissues: No joint effusion. No suspicious soft tissue calcifications. IMPRESSION: 1. Stable appearance of right knee arthroscopy. 2. Left knee joint degeneration, moderate to severe involving the medial femoral tibial joint. Reviewed by: RASHEED August on 12/12/2020 5:16 PM PDT Approved by: Aquiles Goddard MD on 12/12/2020 5:16 PM PDT Station ID: [id number]
== END 2020-12-11 23:59 | disposition home or self-care (01) ==
LOC: DI.N 18:24
PROVIDERS: ATTEND Orthopaedic Surgery
DX: Z96.651 Presence of right artificial knee joint (principal); M17.12 Unilateral primary osteoarthritis, left knee

== ENCOUNTER 2021-05-12 10:43 | Outpatient (CLI) | payer MEDICARE, OTHER ==
[2021-05-12 18:49] LABS: BASOPHILS % (AUTO) 0.5 %; EOSINOPHILS # (AUTO) 0.2 10^3/uL (0.0-0.7); EOSINOPHILS % (AUTO) 3.5 %; HCT - HEMATOCRIT 40.4 % (37.0-47.0); HGB - HEMOGLOBIN 12.6 g/dL (12.0-16.0); LYMPHOCYTES % (AUTO) 33.9 %; MEAN CORPUSCULAR HEMOGLOBIN 26.2 pg (27.0-31.0); MEAN CORPUSCULAR HGB CONC 31.2 g/dL (32.0-36.0); MEAN PLATELET VOLUME 11.4 fL (7.9-10.8); MONOCYTES # (AUTO) 0.4 10^3/uL (0.0-1.0); MONOCYTES % (AUTO) 6.6 %; NEUTROPHILS # (AUTO) 3.3 10^3/uL (1.5-6.6); NEUTROPHILS % (AUTO) 55.2 %; PLT - PLATELET COUNT 250 10^3/uL (130-450); RED BLOOD COUNT 4.81 10^6/uL (4.20-5.40); RED CELL DISTRIBUTION WIDTH 13.7 % (12.0-15.0); WHITE BLOOD COUNT 5.9 x10^3/uL (4.8-10.8)
[2021-05-12 19:48] LABS: THYROID STIMULATING HORMONE 1.51 uIU/mL (0.34-5.60)
[2021-05-12 19:49] LABS: ALBUMIN 3.9 g/dL (3.2-5.5); ALBUMIN/GLOBULIN RATIO 1.3 (1.0-2.2); ALKALINE PHOSPHATASE 59 IU/L (42-121); ALT ALANINE AMINOTRANSFERASE 14 IU/L (10-60); AST ASPARTATE AMINOTRANSFERASE 16 IU/L (10-42); BUN - BLOOD UREA NITROGEN 21 mg/dL (6-20); CARBON DIOXIDE - CO2 28 mmol/L (21-32); CHLORIDE 103 mmol/L (101-111); CHOL/HDL RATIO 3.7 (<4.4); CHOLESTEROL 191 mg/dL; CREATININE 0.8 mg/dL (0.4-1.0); GFR - MDRD 72 (>89); GLUCOSE 92 mg/dL (70-100); HDL CHOLESTEROL 51 mg/dL; LDL CHOLESTEROL,CALCULATED 114 mg/dL; LDL/HDL RATIO 2.2 (<4.4); POTASSIUM 4.5 mmol/L (3.5-5.0); SODIUM 138 mmol/L (135-145); TOTAL PROTEIN 6.9 g/dL (6.7-8.2); TRIGLYCERIDES 129 mg/dL; VLDL CHOLESTEROL 26 mg/dL
== END 2021-05-12 23:59 | disposition home or self-care (01) ==
LOC: LAB.WCP 10:43
PROVIDERS: ATTEND Family Medicine
DX: I10 Essential (primary) hypertension (principal); E03.9 Hypothyroidism, unspecified
CPT/HCPCS: 36415; 80053; 80061; 83721; 84443; 85025

== ENCOUNTER 2021-10-20 09:16 | Outpatient (CLI) | payer MEDICARE, OTHER ==
--- NOTE | 2021-10-20 15:35 | XRAY Report ---
PROCEDURE: Knee 4 View RT INDICATIONS: KNEE PX TECHNIQUE: 4 views of the right knee(s) were acquired. COMPARISON: X-ray right knee, 08/27/2020, 10/31/2020 and 12/11/2009 21. FINDINGS: Bones: No fractures or dislocations. No suspicious bony lesions. Mild to moderate left knee joint degeneration is noted. Soft tissues: Small right joint effusion. No suspicious soft tissue calcifications. IMPRESSION: 1. Right knee total arthroplasty. Surgical hardware are intact. Alignment is stable. 2. Moderate knee joint effusion. 3. Mild-to moderate degenerative joint disease of the left knee. Reviewed by: Dayana Cobian MD on 10/20/2021 3:34 PM PDT Approved by: Dayana Cobian MD on 10/20/2021 3:34 PM PDT Station ID: [id number]
== END 2021-10-20 23:59 | disposition home or self-care (01) ==
LOC: DI.WOS 09:16
PROVIDERS: ATTEND Physician Assistant
DX: M25.461 Effusion, right knee (principal); M17.12 Unilateral primary osteoarthritis, left knee; Z96.651 Presence of right artificial knee joint

== ENCOUNTER 2022-06-21 10:53 | Outpatient (CLI) | payer MEDICARE, OTHER ==
--- NOTE | 2022-06-22 10:02 | Mammography Report ---
BILATERAL DIGITAL SCREENING MAMMOGRAM 3D/2D: 06/21/2022 CLINICAL: Routine screening. Comparison is made to exams dated: 05/13/2020 mammogram, 03/22/2019 mammogram, 05/04/2017 mammogram, an d 09/18/2015 mammogram - [facility]. Both breasts are almost entirely fatty (category a/<25% glandular tissue). No significant masses, calcifications, or other findings are seen in either breast. There has been no significant interval change. IMPRESSION: NEGATIVE There is no mammographic evidence of malignancy. A 1 year screening mammogram is recommended. Based on the Tyrer Cuzick model (a risk assessment model) the patients lifetime risk is 3.9% and her 10 year risk is 2.0%. According to the ACR, ACS, and NCCN guidelines, an annual breast MRI exam jeffery g with mammogram is recommended if the patients lifetime risk is 20% or greater. This exam was interpreted at Station ID: [id number]. NOTE: For mammograms, a report in lay terms will be sent to the patient. Approximately 15% of breast malignancies will not be visualized mammographically. In the management of a palpable breast mass, a negative mammogram must not discourage biopsy of a clinically suspicious lesion. Electronically Signed By: Bijan mcnair/darryn:06/21/2022 16:52:11 letter sent: No_Letter ACR BI-RADS Category 1: Negative 3341F PARENCHYMAL PATTERN: (F) - The breast(s) demonstrate(s) diffuse fatty replacement. BI-RADS CATEGORY: (1) - 1 Mammogram [id number] 1 year screening LATERALITY: (B)
== END 2022-06-21 10:54 | disposition home or self-care (01) ==
LOC: DI.N 10:53
DX: Z12.31 Encounter for screening mammogram for malignant neoplasm of breast (principal)

== ENCOUNTER 2022-06-25 09:38 | Outpatient (CLI) | payer MEDICARE, OTHER ==
[2022-06-25 11:51] LABS: BASOPHILS % (AUTO) 0.5 %; EOSINOPHILS # (AUTO) 0.2 10^3/uL (0.0-0.7); EOSINOPHILS % (AUTO) 3.7 %; HCT - HEMATOCRIT 40.6 % (37.0-47.0); HGB - HEMOGLOBIN 12.9 g/dL (12.0-16.0); LYMPHOCYTES # (AUTO) 1.6 10^3/uL (1.5-3.5); LYMPHOCYTES % (AUTO) 26.7 %; MEAN CORPUSCULAR HEMOGLOBIN 26.4 pg (27.0-31.0); MEAN CORPUSCULAR HGB CONC 31.8 g/dL (32.0-36.0); MEAN CORPUSCULAR VOLUME 83.2 fL (81.0-99.0); MEAN PLATELET VOLUME 11.2 fL (7.9-10.8); MONOCYTES # (AUTO) 0.4 10^3/uL (0.0-1.0); MONOCYTES % (AUTO) 6.8 %; NEUTROPHILS # (AUTO) 3.7 10^3/uL (1.5-6.6); NEUTROPHILS % (AUTO) 62.1 %; PLT - PLATELET COUNT 251 10^3/uL (130-450); RED BLOOD COUNT 4.88 10^6/uL (4.20-5.40)
[2022-06-25 12:12] LABS: ALBUMIN 3.8 g/dL (3.2-5.5); ALBUMIN/GLOBULIN RATIO 1.2 (1.0-2.2); ALKALINE PHOSPHATASE 55 IU/L (42-121); ALT ALANINE AMINOTRANSFERASE 13 IU/L (10-60); AST ASPARTATE AMINOTRANSFERASE 16 IU/L (10-42); BILIRUBIN,TOTAL 0.9 mg/dL (0.2-1.0); BUN - BLOOD UREA NITROGEN 19 mg/dL (6-20); CALCIUM 9.4 mg/dL (8.5-10.3); CARBON DIOXIDE - CO2 29 mmol/L (21-32); CHLORIDE 106 mmol/L (101-111); CHOL/HDL RATIO 3.8 (<4.4); CHOLESTEROL 204 mg/dL; CREATININE 0.9 mg/dL (0.4-1.0); GFR - MDRD 62 (>89); GLUCOSE 109 mg/dL (70-100); HDL CHOLESTEROL 53 mg/dL; LDL CHOLESTEROL,CALCULATED 127 mg/dL; LDL/HDL RATIO 2.4 (<4.4); POTASSIUM 4.4 mmol/L (3.5-5.0); SODIUM 142 mmol/L (135-145); TRIGLYCERIDES 120 mg/dL; VLDL CHOLESTEROL 24 mg/dL
[2022-06-25 12:21] LABS: THYROID STIMULATING HORMONE 1.76 uIU/mL (0.34-5.60)
== END 2022-06-25 09:39 | disposition home or self-care (01) ==
LOC: LAB.N 09:38
PROVIDERS: ATTEND Physician Assistant
DX: I10 Essential (primary) hypertension (principal); E03.9 Hypothyroidism, unspecified
CPT/HCPCS: 36415; 80053; 80061; 83721; 84443; 85025

== ENCOUNTER 2023-06-21 13:15 | Outpatient (CLI) | payer MEDICARE, OTHER | END 2023-06-21 13:30 | disposition home or self-care (01) | LOC: LAB.N 13:15 | PROVIDERS: ATTEND Specialist | DX: N39.0 Urinary tract infection, site not specified (principal) | CPT/HCPCS: 87086 ==

== ENCOUNTER 2023-06-30 09:21 | Outpatient (CLI) | payer MEDICARE, OTHER ==
[2023-06-30 11:57] LABS: BASOPHILS % (AUTO) 0.5 %; EOSINOPHILS # (AUTO) 0.2 10^3/uL (0.0-0.7); HCT - HEMATOCRIT 40.2 % (37.0-47.0); HGB - HEMOGLOBIN 12.5 g/dL (12.0-16.0); LYMPHOCYTES # (AUTO) 1.8 10^3/uL (1.5-3.5); LYMPHOCYTES % (AUTO) 32.1 %; MEAN CORPUSCULAR HEMOGLOBIN 26.3 pg (27.0-31.0); MEAN CORPUSCULAR HGB CONC 31.1 g/dL (32.0-36.0); MEAN CORPUSCULAR VOLUME 84.6 fL (81.0-99.0); MEAN PLATELET VOLUME 11.4 fL (7.9-10.8); MONOCYTES # (AUTO) 0.5 10^3/uL (0.0-1.0); NEUTROPHILS # (AUTO) 3.2 10^3/uL (1.5-6.6); NEUTROPHILS % (AUTO) 55.2 %; PLT - PLATELET COUNT 228 10^3/uL (130-450); RED BLOOD COUNT 4.75 10^6/uL (4.20-5.40); RED CELL DISTRIBUTION WIDTH 12.7 % (12.0-15.0); WHITE BLOOD COUNT 5.7 x10^3/uL (4.8-10.8)
[2023-06-30 12:35] LABS: THYROID STIMULATING HORMONE 1.82 uIU/mL (0.34-5.60)
[2023-06-30 12:37] LABS: ALBUMIN 4.2 g/dL (3.2-5.5); ALKALINE PHOSPHATASE 56 IU/L (42-121); ALT ALANINE AMINOTRANSFERASE 14 IU/L (10-60); AST ASPARTATE AMINOTRANSFERASE 14 IU/L (10-42); BILIRUBIN,TOTAL 0.7 mg/dL (0.2-1.0); BUN - BLOOD UREA NITROGEN 15 mg/dL (6-20); CALCIUM 9.4 mg/dL (8.5-10.3); CARBON DIOXIDE - CO2 30 mmol/L (21-32); CHLORIDE 106 mmol/L (101-111); CHOL/HDL RATIO 4.1 (<4.4); CHOLESTEROL 179 mg/dL; CREATININE 0.8 mg/dL (0.6-1.3); GFR - MDRD 71 (>89); GLUCOSE 105 mg/dL (74-104); HDL CHOLESTEROL 44 mg/dL; LDL CHOLESTEROL,CALCULATED 108 mg/dL; LDL/HDL RATIO 2.5 (<4.4); POTASSIUM 4.3 mmol/L (3.5-4.5); SODIUM 139 mmol/L (135-145); TOTAL PROTEIN 6.3 g/dL (6.4-8.9); TRIGLYCERIDES 133 mg/dL (48-352); VLDL CHOLESTEROL 27 mg/dL
== END 2023-06-30 09:22 | disposition home or self-care (01) ==
LOC: LAB.N 09:21
PROVIDERS: ATTEND Physician Assistant
DX: I10 Essential (primary) hypertension (principal); E03.9 Hypothyroidism, unspecified
CPT/HCPCS: 36415; 80053; 80061; 83721; 84443; 85025

== ENCOUNTER 2023-07-19 08:49 | Outpatient (CLI) | payer MEDICARE, OTHER ==
--- NOTE | 2023-07-20 10:12 | Mammography Report ---
BILATERAL DIGITAL SCREENING MAMMOGRAM 3D/2D: 07/19/2023 CLINICAL: Routine screening. Comparison is made to exams dated: 06/21/2022 mammogram, 05/13/2020 mammogram, and 03/22/2019 mammogram - [facility]. Both breasts are almost entirely fatty (category a/<25% glandular tissue). No significant masses, calcifications, or other findings are seen in either breast. There has been no significant interval change. IMPRESSION: NEGATIVE There is no mammographic evidence of malignancy. A 1 year screening mammogram is recommended. Based on the Tyrer Cuzick model (a risk assessment model) the patient's lifetime risk is 3.5% and her 10 year risk is 1.9%. According to the ACR, ACS, and NCCN guidelines, an annual breast MRI exam jeffery g with mammogram is recommended if the patient's lifetime risk is 20% or greater. This exam was interpreted at Station ID: [id number]. NOTE: For mammograms, a report in lay terms will be sent to the patient. Approximately 15% of breast malignancies will not be visualized mammographically. In the management of a palpable breast mass, a negative mammogram must not discourage biopsy of a clinically suspicious lesion. Electronically Signed By: Anjel walker/darryn:07/19/2023 13:29:00 letter sent: No_Letter ACR BI-RADS Category 1: Negative 3341F PARENCHYMAL PATTERN: (F) - The breast(s) demonstrate(s) diffuse fatty replacement. BI-RADS CATEGORY: (1) - 1 RECOMMENDATION: (ANNUAL) - Recommend routine annual screening mammography. [id number] 1 year screening LATERALITY: (B)
== END 2023-07-19 08:50 | disposition home or self-care (01) ==
LOC: DI.N 08:49
DX: Z12.31 Encounter for screening mammogram for malignant neoplasm of breast (principal)

== ENCOUNTER 2023-07-23 09:02 | Outpatient (CLI) | payer MEDICARE, OTHER ==
--- NOTE | 2023-07-23 19:04 | Ultrasound Report ---
PROCEDURE: Renal (Retroperitoneal) INDICATIONS: R FLANK PAIN TECHNIQUE: Real-time scanning was performed of the retroperitoneal organs, with image documentation. COMPARISON: None. FINDINGS: Kidneys: Kidneys are normal in size. Right kidney measures 9.5 cm long; left kidney measures 10 cm long. Right renal cortical thickness is 0.7 cm; left renal cortical thickness is 0.5 cm. No solid m asses, hydronephrosis, or nephrolithiasis. Bladder: Pre-void bladder volume is 164 mL. Post-void residual is 4.9 mL. Pre-void images demonstr ate no intraluminal masses or stones. On pre-void images, bilateral ureteral jets are noted with col or Doppler interrogation. (Of note, ureteral jets may not be detectable in up to 25% of cases due to insufficient differences in specific gravity between ureteral and bladder urine). Miscellaneous: No free abdominal fluid. IMPRESSION: 1.No hydronephrosis or nephrolithiasis bilaterally. 2.Kidneys are normal in size with bilateral cortical thinning. 3.Post void residual is 12.9 mL. Reviewed by: Darwin Dutton MD on 07/23/2023 7:03 PM PDT Approved by: Darwin Dutton MD on 07/23/2023 7:03 PM PDT Station ID: [id number]
== END 2023-07-23 09:03 | disposition home or self-care (01) ==
LOC: DI 09:02
PROVIDERS: ATTEND Physician Assistant
DX: R10.9 Unspecified abdominal pain (principal); R31.9 Hematuria, unspecified

== ENCOUNTER 2023-11-08 09:49 | Outpatient (CLI) | payer MEDICARE, OTHER ==
--- NOTE | 2023-11-08 15:08 | XRAY Report ---
PROCEDURE: Foot 3+V LT (Weight Bearing) INDICATIONS: FOOT PAIN, LEFT TECHNIQUE: 3 views of the foot were acquired. COMPARISON: None. FINDINGS: Bones: No fractures or dislocations. No suspicious bony lesions. Soft tissues: No tibiotalar joint effusion. Achilles tendon appears normal. IMPRESSION: No visualized acute fracture or dislocation. However, occult injury cannot be excluded. Recommend raad rt interval imaging follow-up in 7-10 days as clinically indicated for additional evaluation. Reviewed by: Kristen Fam MD on 11/08/2023 3:06 PM PDT Approved by: Kristen Fam MD on 11/08/2023 3:06 PM PDT Station ID: [id number]
== END 2023-11-08 09:50 | disposition home or self-care (01) ==
LOC: DI.N 09:49
DX: M79.672 Pain in left foot (principal)